=== PATIENT | female | born 1945 | race Caucasian/White ===

== ENCOUNTER 2016-08-18 08:43 | Emergency (ER) | payer OTHER ==
[~2016-08-18] VITALS: Ht 162.6 cm; Wt 68.0 kg
--- NOTE | 2016-08-18 09:31 | RADIOLOGY REPORT ---
EXAMINATION: CHEST 2 VIEWS CLINICAL INFORMATION: Cough. COMPARISON: 10/05/2015. TECHNIQUE: PA and lateral views of the chest were obtained. FINDINGS: The cardiac silhouette is not enlarged. The mediastinal and hilar contours are unremarkable. There are neither pleural effusions nor pneumothoraces. There are no consolidations. The osseous structures are unremarkable. IMPRESSION: No evidence for acute disease.
--- NOTE | 2016-08-18 09:46 | ED INFLUENZA/URI COMPLAINT ---
History of Present Illness General Chief Complaint: Upper Respiratory Sx/Fever Stated Complaint: URI, CHEST CONGESTION Source: patient Exam Limitations: no limitations Vital Signs & Intake/Output Vital Signs & Intake/Output Vital Signs Date Time Temp Pulse Resp B/P B/P Pulse O2 O2 Flow FiO2 Mean Ox Delivery Rate 08/18 1022 97.4 72 17 148/88 99 Room Air 08/18 0850 97.6 80 18 156/92 98 Room Air Allergies Coded Allergies: MDX - Ampicillin (AMPICILLIN) (THROAT SWELLS 02/21/12) Reconcile Medications Albuterol Sulfate (Proventil Hfa) 90 MCG HFA.AER.AD 2 PUF INH Q4 PRN shortness of breath Benzonatate (Tessalon Perle) 100 MG CAPSULE 1 CAP PO TID cough Triage Note: PT STATES THAT SHE HAS BEEN TREATED FOR URI , JUST FINISHED PREDNISONE AND STATES THAT SHE JUST DOES NOT FEEL BETTER, COUGH PRODUCTIVE OF CLEAR SPUTUM. AFEBRILE Triage Nurses Notes Reviewed? yes HPI: Ms. Sutton is a 69 yo f w/ PMH HTN/HLD presenting to the ED for cough. States she's had a cough for the past week and was seen by her primary care doctor and prescribed ciprofloxacin as well as prednisone. Patient was also taking Tessalon for the cough. She states that her symptoms haven't improved at all and she now starting to lose her voice. She denies any fever or chills. Patient denies any chest pain. She states when she starts coughing, she is having coughing fits and is unable to stop. This is preventing her from getting any sleep at night. She was changed from Tessalon 2 Mucinex this past week with some improvement but still upset about the amount of coughing that happening. Patient denies any other ill contacts. She has no history of respiratory problems or smoking history. Patient denies episodes of previous pneumonias. Past History Travel History Traveled to [place] past 21 day No Medical History Any Pertinent Medical History? see below for history Neurological: NONE EENT: NONE Cardiovascular: hypertension, hyperlipidemia Respiratory: NONE Gastrointestinal: NONE Hepatic: NONE Renal: NONE Musculoskeletal: NONE Psychiatric: NONE Endocrine: NONE Blood Disorders: NONE Cancer(s): NONE PREP PERSON/Reproductive: NONE Surgical History Surgical History: none Psychosocial History What is your primary language Luxembourgish Tobacco Use: Never used ETOH Use: denies use Illicit Drug Use: denies illicit drug use Family History Hx Contributory? No Review of Systems Review of Systems Constitutional: Reports: no symptoms. EENTM: Reports: no symptoms. Respiratory: Reports: cough, short of breath, sputum production. Denies: hemoptysis, stridor , wheezing. Cardiovascular: Reports: no symptoms. GI: Reports: no symptoms. Genitourinary: Reports: no symptoms. Musculoskeletal: Reports: no symptoms. Skin: Reports: no symptoms. Neurological/Psychological: Reports: no symptoms. Hematologic/Endocrine: Reports: no symptoms. Immunologic/Allergic: Reports: no symptoms. All Other Systems: Reviewed and Negative Physical Exam Physical Exam General Appearance: well developed/nourished, no apparent distress, alert, awake , comfortable Head: atraumatic, normal appearance Eyes: Bilateral: normal appearance, PERRL, EOMI. Ears, Nose, Throat: normal ENT inspection, moist mucous membrane, hearing grossly normal Neck: normal inspection, supple, full range of motion Respiratory: normal breath sounds, chest non-tender, no respiratory distress Cardiovascular: regular rate/rhythm Gastrointestinal: normal bowel sounds, soft Rectal: deferred Back: normal inspection, normal range of motion Extremities: normal inspection, normal range of motion Neurologic/Psych: no motor/sensory deficits, awake, alert, oriented x 3 Skin: intact, normal color, warm/dry Lymphatic: no anterior cervical adrien Core Measures Severe Sepsis Present: No Septic Shock Present: No Progress Differential Diagnosis: influenza, otitis, pneumonia, pharyngitis, sinusitis Plan of Care: Orders Procedure Date/time Status AEROSOL (GEN) 08/18 948 Complete 70 yo f w/ PMH of HTN/HLD presenting to ED for cough. Patient is generally well -appearing with symptoms ongoing for the past week. Patient already been treated with both prednisone as well as ciprofloxacin by her PMD. Here in the emergency department her cough is quite bronchospastic in nature and she is having episodes of small coughing fits. Patient also endorses a mild tickle in the back of her throat that she states is exacerbating the cough at times. Will obtain chest x-ray as symptoms have been ongoing for over a week to make sure that the patient does not have evidence of pneumonia however clinically her chest is clear on auscultation. No evidence of pharyngitis on physical examination. Patient's ears are clear bilaterally. No sinus pain to indirect percussion. Will administer a DuoNeb to assist with bronchospastic nature of cough. Will place 5 MLs of lidocaine to numb the back of throat help with the coughing fits as well. Patient had significant improvement in coughing symptoms after that. Chest x- ray does not show evidence of pneumonia. We'll discharge home with albuterol inhaler as well as Tessalon Perles. Patient instructed not to take any more ciprofloxacin antibiotics she does not have a pneumonia. Patient will follow up with her primary care doctor in 2-3 days and was given return precautions. (RAMON NORWOOD,ANDREW) Initial ED EKG: none Departure Departure Time of Disposition: 1017 Disposition: HOME OR SELF CARE Condition: Stable Clinical Impression Primary Impression: URI (upper respiratory infection) Secondary Impressions: Cough due to bronchospasm Referrals: LEIGHA TSANG APRN (PCP/Family) Additional Instructions: Please follow-up with your doctor in 3-4 days. You can do 2 puffs of the inhaler every 4-6 hours as needed for the cough. Remember to press the pump when you are taking a breath in and try to hold her breath as long as possible to keep the medicine deep with any lungs. He can also use the Tessalon Perles at night for cough and to help a near sleep. Do not operate any machinery like a car after using this as it can make some people drowsy. If it does not make you excessively drowsy, you can use it during the day as well. Departure Forms: Customer Survey General Discharge Information Prescriptions: Current Visit Scripts Albuterol Sulfate (Proventil Hfa) 2 PUF INH Q4 PRN shortness of breath #1 INHAL Benzonatate (Tessalon Perle) 1 CAP PO TID #30 CAP
[2016-08-18] MEDS ORDERED: PROVENTIL HFA6.7 GM INH (10:21)
[2016-08-18] MEDS ORDERED: TESSALON PERLE100 M1 PO (10:21)
[2016-08-18 10:22] VITALS: BP 148/88
== END 2016-08-18 10:35 ==
LOC: ERH 08:43
DX: J06.9 Acute upper respiratory infection, unspecified (principal); J98.01 Acute bronchospasm
CPT/HCPCS: 1263